=== PATIENT | female | born 1965 | race African-American/Black ===

== ENCOUNTER 2017-06-17 17:40 | Emergency (ER) | payer OTHER ==
[~2017-06-17] VITALS: Ht 170.2 cm; Wt 99.8 kg
[~2017-06-17 17:40] MED LIST: AUGMENTIN 875875 MG PO; AVELOX 400 MG400 MG PO; CYMBALTA60 MG PO; FLONASE 0.05%50 MCG NS; GABAPENTIN; GLUCOTROL10 MG PO; HYDROCODON-ACE1 EAC7; IBUPROFEN 600600 M1 PO; IMURAN 50MG TAB50 M1 PO; K-DUR 20 MEQ T20 MEQ PO; LASIX 20 MG TAB20 MG PO; NEURONTIN800 MG PO; NORCO 5-325 TA1 EACH PO; PREDNISONE; PRILOSEC 20 MG20 MG PO; PROAIR HFA8.5 GM IH; REGLAN 10 MG TA10 MG PO; TOBREX3.5 GM OP; TRAMADOL 50 MG50 MG PO; VITAMIN D 5050000 I1; VITAMIN D400 UNI1; XANAX 0.5 MG0.5 MG; ZOFRAN ODT4 MG PO
[2017-06-17 18:41] VITALS: BP 138/86
[2017-06-17] MEDS ORDERED: KEFLEX500 M1 PO (18:42)
[2018-02-15] MEDS ORDERED: ULTRAM 50MG TAB50 MG PO (13:49)
[2018-02-15] MEDS ORDERED: DOXYCYCLINE 10100 MG PO (13:49)
== END 2017-06-17 19:29 | disposition home or self-care (01) ==
LOC: ER 17:40
DX: L89.322 Pressure ulcer of left buttock, stage 2 (principal); F17.210 Nicotine dependence, cigarettes, uncomplicated; J40 Bronchitis, not specified as acute or chronic; D86.9 Sarcoidosis, unspecified

== ENCOUNTER → 2017-07-12 | Outpatient (CLI) | payer OTHER ==
[~2017-07-12] MED LIST changes: +DOXYCYCLINE 10100 MG PO; +KEFLEX500 M1 PO; +ULTRAM 50MG TAB50 MG PO
== END ==
LOC: HYPER 07-05 12:21
DX: S31.819A Unspecified open wound of right buttock, initial encounter (principal); S31.829A Unspecified open wound of left buttock, initial encounter; F32.9 Major depressive disorder, single episode, unspecified; Z72.89 Other problems related to lifestyle; X58.XXXA Exposure to other specified factors, initial encounter; Y93.89 Activity, other specified; Y92.89 Other specified places as the place of occurrence of the external cause; Y99.8 Other external cause status

== ENCOUNTER 2018-04-30 15:43 | Emergency (ER) | payer OTHER ==
[~2018-04-30] VITALS: Ht 170.2 cm; Wt 104.3 kg
[2018-04-30 17:01] LABS: BASOPHILS 0.7 % (0.0-2.0); EOSINOPHILS 1.8 % (0.0-3.0); HEMATOCRIT 34.4 % (37.0-47.0); HEMOGLOBIN 11.9 gm/dL (12.0-15.0); LYMPHOCYTES 20.9 % (24.0-44.0); MCH 30.4 pg (26.0-34.0); MCHC 34.6 g/dL (28.0-37.0); MCV 87.9 fL (80.0-100.0); MONOCYTES 8.7 % (1.0-8.0); PLATELET COUNT 218 thou/uL (150-400); POLYS 67.9 % (36.0-66.0); RBC 3.91 mil/uL (4.20-5.00); WBC 7.4 thou/uL (4.0-11.0)
[2018-04-30 17:08] LABS: CALCIUM 9.6 mg/dL (8.5-10.1); CREATININE 1.2 mg/dL (0.6-1.0); POTASSIUM 3.9 mmol/L (3.5-5.1)
[2018-04-30 17:11] LABS: URINE BILIRUBIN NEGATIVE (Negative); URINE BLOOD NEGATIVE (Negative); URINE CLARITY CLEAR; URINE COLOR YELLOW; URINE GLUCOSE-RANDOM* NEGATIVE (Negative); URINE KETONES NEGATIVE (Negative); URINE LEUKOCYTES TRACE (Negative); URINE NITRITE NEGATIVE (Negative); URINE PROTEIN (DIPSTICK) NEGATIVE (Negative); URINE UROBILINOGEN 0.2 E.U./dl (0.2-1.0)
[2018-04-30 17:22] LABS: TOTAL BILIRUBIN 0.3 mg/dL (<0.1-1.0); TOTAL PROTEIN 7.6 g/dL (6.4-8.2)
[2018-04-30] MEDS ORDERED: ULTRAM 50MG TAB50 MG PO (17:47)
[2018-04-30] MEDS ORDERED: IBUPROFEN 600600 M1 PO (17:47)
[2018-04-30] MEDS ORDERED: DOXYCYCLINE 10100 MG PO (17:47)
[2018-04-30 18:07] VITALS: BP 123/75
== END 2018-04-30 18:08 | disposition home or self-care (01) ==
LOC: ER 15:43
PROVIDERS: Physician Assistant
DX: L02.211 Cutaneous abscess of abdominal wall (principal); L03.311 Cellulitis of abdominal wall; F17.210 Nicotine dependence, cigarettes, uncomplicated; J32.9 Chronic sinusitis, unspecified; D86.9 Sarcoidosis, unspecified

== ENCOUNTER 2018-06-04 10:02 | Emergency (ER) | payer OTHER ==
[~2018-06-04] VITALS: Ht 170.2 cm; Wt 101.2 kg
[2018-06-04 11:01] LABS: HEMATOCRIT 39.1 % (37.0-47.0); HEMOGLOBIN 13.1 gm/dL (12.0-15.0); MCHC 33.5 g/dL (28.0-37.0); MCV 89.8 fL (80.0-100.0); RBC 4.35 mil/uL (4.20-5.00); RDW 13.6 % (10.5-14.5); WBC 4.1 thou/uL (4.0-11.0)
[2018-06-04 11:09] LABS: CALCIUM 9.2 mg/dL (8.5-10.1); CREATININE 1.1 mg/dL (0.6-1.0); MAGNESIUM 1.9 mg/dL (1.8-2.4)
[2018-06-04 11:17] LABS: POTASSIUM 4.8 mmol/L (3.5-5.1)
[2018-06-04] MEDS ORDERED: NORCO 10-325 T1 EACH PO (11:50)
[2018-06-04] MEDS ORDERED: CYCLOBENZAPRINE5 MG PO (11:50)
[2018-06-04 13:25] VITALS: BP 140/101
== END 2018-06-04 13:26 | disposition home or self-care (01) ==
LOC: ER 10:02
PROVIDERS: Physician Assistant
DX: M54.32 Sciatica, left side (principal); G47.30 Sleep apnea, unspecified; F17.210 Nicotine dependence, cigarettes, uncomplicated

== ENCOUNTER 2019-08-20 11:12 | Emergency (ER) | payer OTHER ==
[~2019-08-20] VITALS: Ht 170.2 cm; Wt 99.8 kg
[~2019-08-20 11:12] MED LIST changes: +CYCLOBENZAPRINE5 MG PO; +MACROBID 100 M100 M2 PO; +NORCO 10-325 T1 EACH PO; +NORCO 5-325 TA1 EAC1 PO; +PYRIDIUM100 M1 PO; +VITAMIN D1000 UNI1 PO
[2019-08-20] MEDS ORDERED: PREDNISONE 10 M10 MG PO (13:07)
[2019-08-20] MEDS ORDERED: PROAIR HFA8.5 GM INH (13:07)
[2019-08-20] MEDS ORDERED: AUGMENTIN 875-1 EACH PO (13:07)
[2019-08-20 13:33] VITALS: BP 156/97
== END 2019-08-20 13:34 | disposition home or self-care (01) ==
LOC: ER 11:12
DX: J40 Bronchitis, not specified as acute or chronic (principal); D86.9 Sarcoidosis, unspecified; I10 Essential (primary) hypertension; E66.9 Obesity, unspecified; F17.210 Nicotine dependence, cigarettes, uncomplicated; Z96.643 Presence of artificial hip joint, bilateral; Z79.2 Long term (current) use of antibiotics; Z79.899 Other long term (current) drug therapy

== ENCOUNTER 2020-04-11 17:31 | Emergency (ER) | payer OTHER ==
[~2020-04-11] VITALS: Ht 170.2 cm; Wt 98.0 kg
[~2020-04-11 17:31] MED LIST changes: +AUGMENTIN 875-1 EACH PO; +PREDNISONE 10 M10 MG PO; +PROAIR HFA8.5 GM INH
[2020-04-11 19:38] LABS: URINE BILIRUBIN NEGATIVE (Negative); URINE BLOOD NEGATIVE (Negative); URINE CLARITY CLEAR; URINE COLOR YELLOW; URINE GLUCOSE-RANDOM* NEGATIVE (Negative); URINE KETONES NEGATIVE (Negative); URINE PROTEIN (DIPSTICK) NEGATIVE (Negative); URINE SPECIFIC GRAVITY >= 1.030 (1.005-1.035); URINE UROBILINOGEN 0.2 E.U./dl (0.2-1.0)
[2020-04-11 19:39] LABS: URINE LEUKOCYTES-REFLEX 1+ (Negative); URINE NITRITE-REFLEX POSITIVE (Negative)
[2020-04-11 19:54] LABS: CASTS None Seen /LPF (None Seen); MUCUS 4-6 Moderate strn/LPF (None Seen); SQUAMOUS 4-10 Moderate /LPF (0-3)
[2020-04-11 19:55] LABS: BACTERIA-REFLEX >30 Many /HPF (None Seen); CRYSTALS None Seen /LPF (None Seen); URINE RBC 0-2 Rare /HPF (0-2)
[2020-04-11 21:43] VITALS: BP 118/42
== END 2020-04-11 21:43 | disposition short-term general hospital (02) ==
LOC: ER 17:31
PROVIDERS: Emergency Medicine
DX: N39.0 Urinary tract infection, site not specified (principal); M54.9 Dorsalgia, unspecified; F17.210 Nicotine dependence, cigarettes, uncomplicated; Z88.2 Allergy status to sulfonamides; Z79.899 Other long term (current) drug therapy

== ENCOUNTER 2020-04-14 01:33 | Emergency (ER) | payer OTHER ==
[~2020-04-14] VITALS: Ht 170.2 cm; Wt 98.0 kg
[2020-04-14 03:31] VITALS: BP 176/98
[2020-04-15] MEDS ORDERED: KEFLEX500 M1 PO (08:12)
== END 2020-04-14 03:45 | disposition home or self-care (01) ==
LOC: ER 01:33
DX: M79.671 Pain in right foot (principal); F17.210 Nicotine dependence, cigarettes, uncomplicated; Z79.2 Long term (current) use of antibiotics; Z79.899 Other long term (current) drug therapy; Z79.1 Long term (current) use of non-steroidal anti-inflammatories (NSAID); Z88.2 Allergy status to sulfonamides

== ENCOUNTER 2021-04-04 13:49 | Emergency (ER) | payer OTHER ==
[~2021-04-04] VITALS: Ht 170.2 cm; Wt 95.3 kg
[2021-04-04 14:05] VITALS: BP 144/71
[2021-04-04 14:32] LABS: URINE BILIRUBIN NEGATIVE (Negative); URINE BLOOD TRACE (Negative); URINE CLARITY CLEAR; URINE COLOR ORANGE; URINE GLUCOSE-RANDOM* TRACE (Negative); URINE KETONES NEGATIVE (Negative); URINE PROTEIN (DIPSTICK) 1+ (Negative)
[2021-04-04 14:42] LABS: BACTERIA-REFLEX 1-9 Few /HPF (None Seen); CRYSTALS None Seen /LPF (None Seen); SQUAMOUS 0-3 Few /LPF (0-3); URINE RBC None Seen /HPF (NONE SEEN); URINE WBC-REFLEX 0-5 Rare /HPF (0-5)
[2021-04-04] MEDS ORDERED: CEPHALEXIN500 MG PO (14:57)
== END 2021-04-04 14:50 | disposition home or self-care (01) ==
LOC: ER 13:49
PROVIDERS: Nurse Practitioner
DX: N39.0 Urinary tract infection, site not specified (principal); F17.210 Nicotine dependence, cigarettes, uncomplicated; Z98.890 Other specified postprocedural states; Z79.899 Other long term (current) drug therapy; Z79.891 Long term (current) use of opiate analgesic; Z79.51 Long term (current) use of inhaled steroids; Z88.2 Allergy status to sulfonamides

== ENCOUNTER 2021-04-16 14:03 | Emergency (ER) | payer OTHER ==
[~2021-04-16] VITALS: Ht 170.2 cm; Wt 99.3 kg
[~2021-04-16 14:03] MED LIST changes: +CEPHALEXIN500 MG PO
[2021-04-16 14:48] LABS: URINE BILIRUBIN NEGATIVE (Negative); URINE BLOOD 2+ (Negative); URINE CLARITY CLOUDY; URINE COLOR YELLOW; URINE GLUCOSE-RANDOM* NEGATIVE (Negative); URINE KETONES NEGATIVE (Negative); URINE LEUKOCYTES-REFLEX 3+ (Negative); URINE NITRITE-REFLEX NEGATIVE (Negative); URINE PROTEIN (DIPSTICK) TRACE (Negative); URINE UROBILINOGEN 0.2 E.U./dl (0.2-1.0)
[2021-04-16 15:07] LABS: SQUAMOUS 0-3 Few /LPF (0-3)
[2021-04-16 15:08] LABS: URINE RBC 3-10 Few /HPF (NONE SEEN); URINE WBC-REFLEX >25 Many /HPF (0-5)
[2021-04-16] MEDS ORDERED: LEVOFLOXACIN750 MG PO (15:45)
[2021-04-16] MEDS ORDERED: IBUPROFEN 800800 MG PO (15:52)
[2021-04-16 16:04] VITALS: BP 126/66
== END 2021-04-16 16:05 | disposition home or self-care (01) ==
LOC: ER 14:03
PROVIDERS: Student in an Organized Health Care Education/Training Program
DX: N39.0 Urinary tract infection, site not specified (principal); J32.9 Chronic sinusitis, unspecified; F17.210 Nicotine dependence, cigarettes, uncomplicated; Z98.890 Other specified postprocedural states; Z79.51 Long term (current) use of inhaled steroids; Z79.891 Long term (current) use of opiate analgesic; Z79.1 Long term (current) use of non-steroidal anti-inflammatories (NSAID); Z79.899 Other long term (current) drug therapy; Z88.2 Allergy status to sulfonamides

== ENCOUNTER 2021-04-19 10:42 | Emergency (ER) | payer OTHER ==
[~2021-04-19] VITALS: Ht 170.2 cm; Wt 99.3 kg
[~2021-04-19 10:42] MED LIST changes: +IBUPROFEN 800800 MG PO; +LEVOFLOXACIN750 MG PO
[2021-04-19 10:53] VITALS: BP 166/88
[2021-04-19 11:09] LABS: URINE BILIRUBIN 1+ (Negative); URINE BLOOD NEGATIVE (Negative); URINE GLUCOSE-RANDOM* 1+ (Negative); URINE KETONES 2+ (Negative); URINE PROTEIN (DIPSTICK) 1+ (Negative)
[2021-04-19 11:15] LABS: URINE LEUKOCYTES-REFLEX 2+ (Negative); URINE NITRITE-REFLEX POSITIVE (Negative)
[2021-04-19 11:16] LABS: URINE CLARITY HAZY
[2021-04-19 11:17] LABS: URINE COLOR ORANGE
[2021-04-19 11:37] LABS: CASTS None Seen /LPF (None Seen); MUCUS 0-3 Light strn/LPF (None Seen); SQUAMOUS >10 Many /LPF (0-3)
[2021-04-19 11:39] LABS: BACTERIA-REFLEX 1-9 Few /HPF (None Seen); CRYSTALS None Seen /LPF (None Seen); URINE RBC 1-2 Rare /HPF (NONE SEEN)
[2021-04-19] MEDS ORDERED: DOXYCYCLINE 10100 M2 PO (12:09)
[2021-04-19] MEDS ORDERED: AUGMENTIN 875-1 EACH PO (12:09)
== END 2021-04-19 13:47 | disposition home or self-care (01) ==
LOC: ER 10:42
PROVIDERS: Physician Assistant
DX: N30.00 Acute cystitis without hematuria (principal); F17.210 Nicotine dependence, cigarettes, uncomplicated; Z79.899 Other long term (current) drug therapy; Z88.2 Allergy status to sulfonamides

== ENCOUNTER 2021-06-30 19:40 | Emergency (ER) | payer OTHER ==
[~2021-06-30] VITALS: Ht 170.2 cm; Wt 102.1 kg
[~2021-06-30 19:40] MED LIST changes: +DOXYCYCLINE 10100 M2 PO
[2021-06-30 21:57] VITALS: BP 130/82
== END 2021-06-30 21:58 | disposition home or self-care (01) ==
LOC: ER 19:40
DX: S80.02XA Contusion of left knee, initial encounter (principal); F17.210 Nicotine dependence, cigarettes, uncomplicated; Z98.890 Other specified postprocedural states; Z79.51 Long term (current) use of inhaled steroids; Z79.891 Long term (current) use of opiate analgesic; Z79.899 Other long term (current) drug therapy; Z88.2 Allergy status to sulfonamides; W01.0XXA Fall on same level from slipping, tripping and stumbling without subsequent striking against object, initial encounter; Y93.89 Activity, other specified; Y92.89 Other specified places as the place of occurrence of the external cause; Y99.8 Other external cause status